=== PATIENT | female | born 1980 | race African-American/Black ===

== ENCOUNTER 2019-03-12 21:05 | Emergency (ER) | payer BC ==
[2019-03-12] MEDS ORDERED: Amoxicillin/Potassium Clav 875 MG TAB ONE (22:29)
== END 2019-03-12 22:35 | disposition home or self-care (01) ==
LOC: BURERS 21:05
DX: J06.9 Acute upper respiratory infection, unspecified (principal); F41.9 Anxiety disorder, unspecified; F32.9 Major depressive disorder, single episode, unspecified; F17.210 Nicotine dependence, cigarettes, uncomplicated; D64.9 Anemia, unspecified; I10 Essential (primary) hypertension; Z79.899 Other long term (current) drug therapy
CPT/HCPCS: 87804; 99283

== ENCOUNTER 2020-03-16 21:06 | Emergency (ER) | payer BC ==
[2020-03-16 22:14] LABS: Band 2 % (5-11); Eosinophils 1 % (0-10); Hemoglobin 11.6 g/dL (12.0-16.0); Hypochromia SLIGHT = 6-15 cells (100X) (0-5/hpf); Lymphocytes 34 % (21-51); MDiff Complete? YES; Mean Corpuscular HGB CONC 31.2 g/dL (32.0-36.0); Mean Platelet Volume 8.3 fL (7.4-10.4); Monocytes 7 % (0-10); Neutrophil 55 % (42-75); Platelet Count 326 thou/uL (130-400); Platelet Morphology Comment Appears Adequate; RBC Distribution Width 15.6 % (11.5-14.5); Red Blood Cell (RBC) Count 4.83 mill/uL (4.20-5.40); Vacuoles SLIGHT; White Blood Cell (WBC) Count 7.5 thou/uL (4.8-10.8)
== END 2020-03-16 22:25 | disposition home or self-care (01) ==
LOC: BURERS 21:06
DX: R06.00 Dyspnea, unspecified (principal); K21.9 Gastro-esophageal reflux disease without esophagitis; D64.9 Anemia, unspecified; I10 Essential (primary) hypertension; F17.210 Nicotine dependence, cigarettes, uncomplicated; Z79.899 Other long term (current) drug therapy
CPT/HCPCS: 36415; 85025; 99284

== ENCOUNTER 2021-04-06 16:47 | Outpatient (CLI) | payer OTHER | END 2021-04-06 16:48 | disposition home or self-care (01) | LOC: BURRAD 16:47 | PROVIDERS: ATTEND Clinical Nurse Specialist Medical-Surgical | DX: R06.02 Shortness of breath (principal) | CPT/HCPCS: 71046 ==